=== PATIENT | female | born 1965 | race American Indian/Alaskan Native ===

== ENCOUNTER 2016-09-03 14:11 | Outpatient (CLI) | payer OTHER ==
--- NOTE | 2016-09-03 14:53 | XRay Report ---
LEFT HIP: The bony architecture is intact without evidence of fracture or dislocation. No significant soft tissue abnormality is seen. IMPRESSION: Normal left hip.
== END 2016-09-03 14:12 | disposition home or self-care (01) ==
LOC: XRAY 14:11
PROVIDERS: ATTEND Internal Medicine
DX: M25.552 Pain in left hip (principal)